=== PATIENT | male | born 1975 | race Caucasian/White ===

== ENCOUNTER 2017-01-05 09:18 | Emergency (ER) | payer OTHER ==
[2017-01-05 09:23] VITALS: BP 147/84; PULSE 90; TEMP 98; O2SAT 98; BMI 28.8
[2017-01-05 09:28] VITALS: RESP 20
--- NOTE | 2017-01-05 09:54 | ED PDOC ---
HPI: General Adult Time Seen by Provider: 01/05/17 09:27 Chief Complaint (Nursing): ENT Problem Chief Complaint (Provider): right ear pain History Per: Patient History/Exam Limitations: no limitations Onset/Duration Of Symptoms: Days (x 3 weeks ) Have you had recent travel within the past 21 days to any of the following countries: [place], [place], [place] or [place]?: No Additional Complaint(s): René Ortiz is a 41 year old male, with no previous medical history, who presents to the ED with complaints of right ear pain ongoing for 3 weeks. Patient was seen by his PMD and treated with PO antibiotics and bactroban which he reports provided no relief. PMD: none provided Past Medical History Reviewed: Historical Data, Nursing Documentation, Vital Signs Vital Signs: Last Vital Signs Temp 98 F 01/05/17 09:26 Pulse 90 01/05/17 09:26 Resp 20 01/05/17 09:26 BP 147/84 01/05/17 09:26 Pulse Ox 98 01/05/17 09:57 - Medical History PMH: HTN, Hypercholesterolemia - Surgical History Surgical History: No Surg Hx - Family History Family History: States: Unknown Family Hx - Allergies Allergies/Adverse Reactions: Allergies Allergy/AdvReac Type Severity Reaction Status Date / Time No Known Allergies Allergy Verified 01/05/17 09:26 Review of Systems ROS Statement: Except As Marked, All Systems Reviewed And Found Negative Constitutional: Negative for: Fever, Chills ENT: Positive for: Ear Pain (right ) Physical Exam - Reviewed Nursing Documentation Reviewed: Yes Vital Signs Reviewed: Yes - Physical Exam Appears: Positive for: Well, Non-toxic, No Acute Distress ENT: Positive for: TM Is/Are (left is within normal limits), Other (fluctuant mass in auditory canal, blocking the TM unable to see how far back it extends. No active bleeding, drainage, swelling or erythema) Neurologic/Psych: Positive for: Alert, Oriented - ECG O2 Sat by Pulse Oximetry: 98 (RA) Pulse Ox Interpretation: Normal Medical Decision Making Medical Decision Making: Initial Impression: Right Ear pain Initial Plan: * physical exam * disposition Scribe Attestation: Documented by Yeni Schmid, acting as a scribe for Andrei Reilly MD. Provider Scribe Attestation: All medical record entries made by the Scribe were at my direction and personally dictated by me. I have reviewed the chart and agree that the record accurately reflects my personal performance of the history, physical exam, medical decision making, and the department course for this patient. I have also personally directed, reviewed, and agree with the discharge instructions and disposition. Disposition - Clinical Impression Clinical Impression: Abscess, ear canal - Patient ED Disposition Is Patient to be Admitted: No - Disposition Referrals: Jareth Francisco MD [Staff Provider] - Disposition: Routine/Home Disposition Time: 10:07 Condition: FAIR Additional Instructions: Dr Francisco's office 1PM Instructions: Abscess (ED)
== END 2017-01-05 10:17 | disposition home or self-care (01) ==
LOC: H.ER 09:18
DX: H66.41 Suppurative otitis media, unspecified, right ear (principal)

== ENCOUNTER 2017-06-07 11:00 | Emergency (ER) | payer OTHER ==
[2017-06-07 11:05] VITALS: TEMP 97; O2SAT 98; BMI 31.5
[2017-06-07 11:43] LABS: BASO # 0.1 K/uL (0.0-0.2); BASO % 0.6 % (0.0-2.0); EOS # 0.2 K/uL (0.0-0.7); EOS % 2.1 % (0.0-4.0); HEMATOCRIT 45.1 % (35.0-51.0); LYMPH # 2.3 K/uL (1.0-4.3); LYMPH % 24.4 % (20.0-40.0); MEAN CELL VOLUME 80.4 fl (80.0-94.0); MEAN CORPUSCULAR HEMOGLOBIN 26.9 pg (27.0-31.0); MEAN CORPUSCULAR HGB CONC 33.5 g/dL (33.0-37.0); MEAN PLATELET VOLUME 7.5 fl (7.2-11.7); MONO # 0.7 K/uL (0.0-0.8); MONO % 7.6 % (0.0-10.0); NEUT # 6.2 K/uL (1.8-7.0); NEUT % 65.3 % (50.0-75.0); NRBC % 0.3 % (0.0-0.0); RED CELL DISTRIBUTION WIDTH 13.8 % (11.5-14.5); WHITE BLOOD COUNT 9.5 K/uL (4.8-10.8)
[2017-06-07] MEDS ORDERED: Alum-Mag Hydrox-Simethicone Susp (30 mL) PO ONE (11:44)
[2017-06-07 11:54] LABS: ALKALINE PHOSPHATASE 83 U/L (38-126); ALT/SGPT 34 U/L (21-72); AST/SGOT 36 U/L (17-59); BILIRUBIN,TOTAL 0.5 mg/dl (0.2-1.3); BLOOD UREA NITROGEN 15 mg/dl (9-20); CALCIUM 9.7 mg/dL (8.4-10.2); CARBON DIOXIDE 25 mmol/L (22-30); CHLORIDE 105 mmol/L (98-107); GFR AFRICAN-AMERICAN > 60; GLUCOSE,RANDOM 114 mg/dL (75-110); LIPASE 80 U/L (23-300); POTASSIUM 4.2 MMOL/L (3.6-5.0); SODIUM 146 mmol/l (132-148); TOTAL PROTEIN 8.4 G/DL (6.3-8.2)
[2017-06-07] MEDS ORDERED: Alum-Mag Hydrox-Simethicone Susp (30 mL) ONE (11:55)
[2017-06-07 11:56] LABS: ALB/GLOB RATIO 1.3 (1.0-2.1)
--- NOTE | 2017-06-07 12:14 | ED PDOC ---
HPI: Abdomen Time Seen by Provider: 06/07/17 11:13 Chief Complaint (Nursing): Abdominal Pain Chief Complaint (Provider): epigastric pain History Per: Patient History/Exam Limitations: no limitations Onset/Duration Of Symptoms: Days (11), Gradual Current Symptoms Are (Timing): Still Present Location Of Pain/Discomfort: Epigastric Quality Of Discomfort: Sharp Associated Symptoms: Nausea, Loss Of Appetite. denies: Vomiting Exacerbating Factors: None Alleviating Factors: None Additional Complaint(s): 41yo male presents c/o epigastric pain now ongoing for about 11 days. Pain is sharp and radiates to the back. Denies vomiting, melena or weakness. PMD gave trial of medications which has not helped. Past Medical History Reviewed: Historical Data, Nursing Documentation, Vital Signs Vital Signs: Last Vital Signs Temp 97 F L 06/07/17 11:04 Pulse 76 06/07/17 11:04 Resp BP 135/91 H 06/07/17 11:04 Pulse Ox 98 06/07/17 12:14 - Medical History PMH: HTN, Hypercholesterolemia - Surgical History Surgical History: No Surg Hx - Family History Family History: States: Unknown Family Hx - Social History Alcohol: None - Allergies Allergies/Adverse Reactions: Allergies Allergy/AdvReac Type Severity Reaction Status Date / Time No Known Allergies Allergy Verified 01/05/17 09:26 Review of Systems ROS Statement: Except As Marked, All Systems Reviewed And Found Negative Constitutional: Negative for: Fever, Chills ENT: Negative for: Throat Pain Cardiovascular: Negative for: Chest Pain, Orthopnea Respiratory: Negative for: Shortness of Breath Gastrointestinal: Positive for: Nausea, Abdominal Pain Genitourinary Male: Negative for: Dysuria, Frequency Musculoskeletal: Positive for: Back Pain. Negative for: Neck Pain Skin: Negative for: Rash, Lesions Neurological: Negative for: Weakness, Numbness, Dizziness Psych: Negative for: Anxiety Physical Exam - Reviewed Nursing Documentation Reviewed: Yes Vital Signs Reviewed: Yes - Physical Exam Appears: Positive for: Well, Non-toxic, No Acute Distress Head Exam: Positive for: ATRAUMATIC, NORMAL INSPECTION, NORMOCEPHALIC Skin: Positive for: Normal Color, Warm, DRY Eye Exam: Positive for: EOMI, Normal appearance, PERRL ENT: Positive for: Normal ENT Inspection Neck: Positive for: Normal, Painless ROM Cardiovascular/Chest: Positive for: Regular Rate, Rhythm Respiratory: Positive for: CNT, Normal Breath Sounds Gastrointestinal/Abdominal: Positive for: Bowel Sounds, Soft, Tenderness (mild epigastric tenderness). Negative for: Guarding Back: Positive for: Normal Inspection Extremity: Positive for: Normal ROM Neurologic/Psych: Positive for: Alert, Oriented. Negative for: Motor/Sensory Deficits - Laboratory Results Result Diagrams: 06/07/17 11:30 06/07/17 11:30 - ECG O2 Sat by Pulse Oximetry: 98 Medical Decision Making Medical Decision Making: workup initiated for epigastric pain labs unremarkable US abdomen no gallstones CT abd pelv ordered w contrast and will endorse Dr Calles 315pm Disposition - Clinical Impression Clinical Impression: Abdominal pain - Patient ED Disposition Is Patient to be Admitted: Transfer of Care Counseled Patient/Family Regarding: Studies Performed - Disposition Disposition: Transfer of Care Disposition Time: 15:07 Condition: STABLE Forms: [facility] ([place])
[2017-06-07 12:25] LABS: RBC URINE 3 /hpf (0-3); URINE BILIRUBIN NEGATIVE (NEGATIVE); URINE BLOOD NEGATIVE (NEGATIVE); URINE COLOR YELLOW (YELLOW); URINE GLUCOSE (UA) NEG (Normal); URINE KETONE NEGATIVE (NEGATIVE); URINE LEUKOCYTE ESTERASE NEG Leu/uL (Negative); URINE PROTEIN NEGATIVE (NEGATIVE); URINE UROBILINOGEN 0.2-1.0 mg/dL (0.2-1.0); WBC URINE < 1 /hpf (0-5)
--- NOTE | 2017-06-07 13:08 | US ---
HISTORY: upper abd pain COMPARISON: None. TECHNIQUE: Sonographic evaluation of the abdomen. FINDINGS: LIVER: Measures 19.6 cm. Moderately increased echogenicity of the liver parenchyma suggests diffuse fatty infiltration liver or other infiltrative process. No mass. No intrahepatic bile duct dilatation. GALLBLADDER: Unremarkable. No gallstones. COMMON BILE DUCT: Measures 3.4 mm. No stones. No dilatation. PANCREAS: The tail of the pancreas is obscured by overlying bowel gas with remainder unremarkable. RIGHT KIDNEY: Measures 13.4cm. Normal echogenicity. No calculus, mass, or hydronephrosis. LEFT KIDNEY: Measures 13.6cm. Normal echogenicity. No calculus, mass, or hydronephrosis. SPLEEN: Normal in size and contour. No mass. AORTA: No aneurysmal dilatation. IVC: Unremarkable. OTHER FINDINGS: None. IMPRESSION: Moderate diffuse fatty infiltrated liver suggested or other infiltrative process. No intrahepatic biliary dilatation. Normal caliber CBD. Unremarkable appearing gallbladder. No obstructive uropathy bilaterally. Partial imaging of the pancreas.
[2017-06-07] MEDS ORDERED: Iohexol 240 (50 ml) PO ONE (13:48)
[2017-06-07] MEDS ORDERED: Sodium Chloride 0.9% 50 ML IV ONE (15:38)
[2017-06-07] MEDS ORDERED: Iohexol 300 100 ML IJ ONE (15:38)
--- NOTE | 2017-06-07 15:41 | ED PDOC ---
- Laboratory Results Result Diagrams: 06/07/17 11:30 06/07/17 11:30 - ECG O2 Sat by Pulse Oximetry: 98 Medical Decision Making Medical Decision Makin:15 Patient signed out to me by Dr. Bradley pending CT scan, reassessment, and final ER disposition. Accession No. : [id number] Patient Name / ID : MILO SULTANA / [id number] Exam Date : 06/07/2017 15:47:03 ( Approved ) Study Comment : Sex / Age : M / 41Y Creator : Dhaval Horta MD Dictator : Dhaval Horta MD Tube Filler : Table Assembler : Dhaval Horta MD Approver2 : Report Date : 06/07/2017 17:11:36 My Comment : PROCEDURE: CT Abdomen and Pelvis with contrast HISTORY: COMPARISON: None. TECHNIQUE: Contrast dose: Omnipaque 300, 95 cc Radiation dose: Total exam DLP = 1005.97 mGy-cm. This CT exam was performed using one or more of the following dose reduction techniques: Automated exposure control, adjustment of the mA and/or kV according to patient size, and/or use of iterative reconstruction technique. FINDINGS: LOWER THORAX: Unremarkable. LIVER: Mild diffuse fatty infiltration of the liver. A small cyst in the left lobe liver measuring 1 cm. An additional tiny lucency is seen at the watershed region as dome anteriorly which is too small to characterize. No intrahepatic biliary duct dilatation identified. . GALLBLADDER AND BILE DUCTS: Unremarkable. PANCREAS: Unremarkable. No gross lesion or ductal dilatation. SPLEEN: Mild splenomegaly of 13.8 cm without underlying mass appreciated. ADRENALS: Unremarkable. No mass. KIDNEYS AND URETERS: Unremarkable. No hydronephrosis. No solid mass. VASCULATURE: Unremarkable. No aortic aneurysm. BOWEL: Unremarkable. No obstruction. No gross mural thickening. APPENDIX: Normal appendix. PERITONEUM: Unremarkable. No free fluid. No free air. LYMPH NODES: Unremarkable. No enlarged lymph nodes. BLADDER: Unremarkable. REPRODUCTIVE: Unremarkable. BONES: No acute fracture. OTHER FINDINGS: None. IMPRESSION: Mild diffuse fatty infiltration liver is appreciated. Limited splenomegaly of uncertain origin. Remainder of the examination appears unremarkable though limited in evaluation due lack of oral contrast administration. DW pt findings. Will rx PPI and carafate instead and needs to f/u w PMD in 1-2 weeks for reeval. DW pt possibility of seeing a vice president marketing & development if symptoms persist. Scribe Attestation: Documented by Margarette Alaniz, acting as a scribe for Bella Calles MD. Provider Scribe Attestation: All medical record entries made by the Scribe were at my direction and personally dictated by me. I have reviewed the chart and agree that the record accurately reflects my personal performance of the history, physical exam, medical decision making, and the department course for this patient. I have also personally directed, reviewed, and agree with the discharge instructions and disposition. Disposition Counseled Patient/Family Regarding: Studies Performed, Diagnosis, Need For Followup, Rx Given - Clinical Impression Clinical Impression: Abdominal pain - POA Present On Arrival: None - Disposition Referrals: Josue Benites MD [Staff Provider] - (FOLLOW UP WITH YOUR PRIMARY DOCTOR IN 1-2 WEEKS. IF YOUR SYMPTOMS PERSIST, YOU MAY NEED TO ALSO SEE THE ASSISTANT GOLF PROFESSIONAL FOR POSSIBLE ENDOSCOPY.) Disposition: Routine/Home Disposition Time: 17:00 Condition: GOOD Prescriptions: Omeprazole Magnesium [Prilosec Otc] 20 mg PO DAILY #14 tcp Sucralfate [Carafate] 1 gm PO QID PRN #20 dose PRN Reason: Abdominal pain Instructions: Epigastric Pain (ED)
[2017-06-07 16:54] VITALS: BP 105/67; PULSE 70
--- NOTE | 2017-06-08 08:33 | CT ---
PROCEDURE: CT Abdomen and Pelvis with contrast HISTORY: COMPARISON: None. TECHNIQUE: Contrast dose: Omnipaque 300, 95 cc Radiation dose: Total exam DLP = 1005.97 mGy-cm. This CT exam was performed using one or more of the following dose reduction techniques: Automated exposure control, adjustment of the mA and/or kV according to patient size, and/or use of iterative reconstruction technique. FINDINGS: LOWER THORAX: Unremarkable. LIVER: Mild diffuse fatty infiltration of the liver. A small cyst in the left lobe liver measuring 1 cm. An additional tiny lucency is seen at the watershed region as dome anteriorly which is too small to characterize. No intrahepatic biliary duct dilatation identified. . GALLBLADDER AND BILE DUCTS: Unremarkable. PANCREAS: Unremarkable. No gross lesion or ductal dilatation. SPLEEN: Mild splenomegaly of 13.8 cm without underlying mass appreciated. ADRENALS: Unremarkable. No mass. KIDNEYS AND URETERS: Unremarkable. No hydronephrosis. No solid mass. VASCULATURE: Unremarkable. No aortic aneurysm. BOWEL: Unremarkable. No obstruction. No gross mural thickening. APPENDIX: Normal appendix. PERITONEUM: Unremarkable. No free fluid. No free air. LYMPH NODES: Unremarkable. No enlarged lymph nodes. BLADDER: Unremarkable. REPRODUCTIVE: Unremarkable. BONES: No acute fracture. OTHER FINDINGS: None. IMPRESSION: Mild diffuse fatty infiltration liver is appreciated. Limited splenomegaly of uncertain origin. Remainder of the examination appears unremarkable though limited in evaluation due lack of oral contrast administration.
--- NOTE | 2017-06-08 12:23 | CARD ---
APPROVED REPORT EKG Measurement Heart [id number] <Conclusion> Normal sinus rhythm Normal ECG
== END 2017-06-07 17:59 | disposition home or self-care (01) ==
LOC: H.ER 11:00
DX: R10.9 Unspecified abdominal pain (principal); I10 Essential (primary) hypertension; E78.00 Pure hypercholesterolemia, unspecified
CPT/HCPCS: 74177; 76700; 80053; 81003; 83690; 85025; 93005; 96374; 96375; 99282; J1885; Q9967